=== PATIENT | male | born 2005 | race Caucasian/White ===

== ENCOUNTER → 2025-06-04 | Day surgery (SDC) | payer BC ==
[~2025-06-04] MED LIST: Gadobenate Dimeglumine 2 ML, Sodium Chloride 0.9% 250 ML 10 ML, Iopamidol 8 ML, Lidocai... FS SCH; Sodium Bicarbonate 2.5 MEQ/5 ML SDV ONE
== END ==
LOC: RAD 10:01
PROVIDERS: ATTEND Orthopaedic Surgery
PROC: BP09YZZ Plain Radiography of Left Shoulder using Other Contrast (ICD-10-PCS; principal; 2025-06-04)
DX: M94.212 Chondromalacia, left shoulder (principal); M25.812 Other specified joint disorders, left shoulder; M25.512 Pain in left shoulder; G89.29 Other chronic pain; M25.312 Other instability, left shoulder
CPT/HCPCS: 23350; 77002; A9577; J0166; J7050; Q9967